=== PATIENT | female | born 1960 | race Caucasian/White ===

== ENCOUNTER 2022-02-15 08:11 | Outpatient (CLI) | payer OTHER, SELFPAY ==
[2022-02-15 11:03] LABS: Albumin* 4.4 g/dL (3.3-5.0); Chloride* 104 mmol/L (96-114)
[2022-02-15 11:04] LABS: Potassium* 4.5 mmol/L (3.6-5.1); Sodium* 138 mmol/L (135-149)
[2022-02-15 11:06] LABS: Carbon Dioxide* 28 mmol/L (20-32); Cholesterol* 159 mg/dL (90-199); Creatinine* 0.8 mg/dL (0.5-1.5); Estimated Glomerular Filt Rate 84 ml/min; Total Protein* 7.3 g/dL (6.0-8.3)
[2022-02-15 11:07] LABS: Alanine Aminotransferase* 14 U/L (4-35); Alkaline Phosphatase* 71 U/L (40-150); Aspartate Amino Transferase* 20 U/L (12-35); Bilirubin Total* 0.4 mg/dL (0.1-1.5); Blood Urea Nitrogen* 19 mg/dL (7-30); Calcium* 9.3 mg/dL (8.4-10.6); Glucose* 115 mg/dL (60-115); Triglycerides* 79 mg/dL (40-149)
[2022-02-15 11:08] LABS: HDL Cholesterol* 53 mg/dL (>=50); LDL Cholesterol Calculated 90 mg/dL (<100)
[2022-02-15 11:22] LABS: Vitamin D 25 Hydroxy* 41 ng/mL (30-80)
[2022-02-15 11:23] LABS: Creatinine Urine 109.5 mg/dL
[2022-02-15 11:27] LABS: Microalbumin Creatinine Ratio 0 mg/g (0-30); Microalbumin Urine 1 mg/dL
== END 2022-02-15 08:12 | disposition home or self-care (01) ==
PROVIDERS: PCP Family Medicine; Visit Provider Family Medicine
DX: Z01.419 Encounter for gynecological examination (general) (routine) without abnormal findings (principal); E11.9 Type 2 diabetes mellitus without complications; E78.5 Hyperlipidemia, unspecified; M85.80 Other specified disorders of bone density and structure, unspecified site; R03.0 Elevated blood-pressure reading, without diagnosis of hypertension; E55.9 Vitamin D deficiency, unspecified
CPT/HCPCS: 80053; 80061; 82043; 82306; 82570

== ENCOUNTER 2022-08-20 08:45 | Outpatient (RCR) | payer OTHER, SELFPAY ==
--- NOTE | 2022-07-29 14:25 | PT.OPEX ---
PT [place] Outpatient Eval PT [facility] Outpatient Eval Start: 07/29/22 13:22 Freq: Status: Active Protocol: Document 07/29/22 13:23 HUGO (Rec: 07/29/22 14:11 HUGO [id number]) E-signed By Eunice Mcbride DPT Physical Therapy Outpatient Evaluation Insurance Information Insurance Name [employer] Medical Diagnosis cervicalgia Treating Diagnosis UBN pain, impaired neck ROM, impaired posture, core/trunk/ neck weakness, limited tolerance for extended time reading/working on computer/ driving Subjective Subjective Patient reports chronic UBN pain issues over the years with flare up of pain/sx back in April. She reports ongoing pain since then, off/ on, worse with turning her head, driving, computer work, reading activities. Patient also feels some of her pain/sx are tightness, tension, and stress related. She is not needing pain meds. Has been using a heating pad but reports minimal, short term relief so far. SLeep has been ok. Patient denies any shoulder pain. Denies any injury/trauma. No UE radicular pain/sx. Pain rated 6/10 with neck ROM, especially rotation. She denies pain at rest. Date of Last Physician Visit 06/15/22 Precautions Treatment Precautions/Contraindications DM Assessment Assessment/Impression Patient is a 61 year old female with UBN pain, impaired neck ROM, impaired posture, core/trunk/neck weakness, limited tolerance for extended time reading/working on computer/driving. She reports hx of chronic UBN pain issues from tension, stress, daily/ work activities of reading, being on the computer. She denies pain at rest, increases to 6/10 with cervical rotation and sidebending. Patient with fwd head, rounded shoulders posture. Bilateral shoulder ROM and strength are WFL. Cervical ROM is tight, stiff, limited with sidebending and rotation. Patient is tight, tender with palpation bilateral UBN region including UT, supraspinatus, cervical/thoracic paraspinals, levator musculature. Reviewed posture with daily/ work activities. Patient reports having PT for her UBN pain about 5 years ago with good results using US, MT, and exercise. Patient would benefit from skilled PT for pain/sx management, improved cervical ROM, posture/body mechanics training, core/trunk /neck strengthening, and establishment of HEP. Plan of Care Rehabilitation Potential Good Physical Therapy Goals 1. Decrease UBN pain to less than/equal to 3/10 with daily/ work activities and with the progression of PT activities over the next 4-6 weeks. 2. Patient will be educated on posture/body mechanics over the next 6-8 weeks for decreased stress on UBN musculature and decreased UBN pain with daily/work activities. 3. Improve cervical ROM to WFL and pain free over the next 8-10 weeks for return to ease with daily/work activities and with driving without flare up of pain. 4. Improve core, trunk, UBN strength and posture over the next 8-10 weeks for return to PLF with daily/work activities without flare up of pain and decreased stress on UBN for ongoing management of chronic neck pain. 5. Patient will be I with HEP within 10 weeks for progression toward above goals, ongoing self management of pain/sx, ongoing self improvements in cervical ROM/posture/ strength, and for return to PLF with daily/work activities, including driving, reading, and computer work without flare ups of pain. Coordination/Communication With Referral Source Treatment Plan/Direct Interventions Electrical Stimulation,Manual Therapy,Therapeutic Exercises, Ultrasound Frequency/Duration 1x/week Patient Will Be Discharged From Therapy Completion of LTG(s),Skills Plateau,Independent w/HEP, Independently Progressing Evaluation Billing Untimed Code Treatment Minutes 23 Complexity Moderate Certification Information Physician Comment/Change : Physician NPI Number #
== END 2022-11-12 11:22 | disposition home or self-care (01) ==
PROVIDERS: PCP Family Medicine; Visit Provider Family Medicine
DX: M54.2 Cervicalgia (principal); Z51.89 Encounter for other specified aftercare
CPT/HCPCS: 97035; 97110; 97140; 97162

== ENCOUNTER 2023-01-26 09:13 | Outpatient (CLI) | payer OTHER, SELFPAY | END 2023-01-26 09:14 | disposition home or self-care (01) | LOC: NFLDREF 01-27 09:30 | PROVIDERS: PCP Family Medicine; Referring Provider Family Medicine; Visit Provider Internal Medicine | DX: R30.0 Dysuria (principal); N39.0 Urinary tract infection, site not specified | CPT/HCPCS: 87086; 87186 ==

== ENCOUNTER 2023-01-26 09:51 | Outpatient (CLI) | payer OTHER, SELFPAY ==
--- NOTE | 2023-01-26 10:15 | CRLHL7_ITS ---
For Patients: As a result of the Century Cures Act, medical imaging exams and procedure reports are released immediately into your electronic medical record. You may view this report before your referring provider. If you have questions, please contact your health care provider. BILATERAL SCREENING MAMMOGRAM WITH COMPUTER-AIDED DETECTION AND TOMOSYNTHESIS TECHNIQUE: CC and MLO views were obtained. These mammographic images have been obtained using full-field digital technique. These mammographic images were interpreted with the benefit of computer-aided detection. Breast Tomosynthesis was used in this interpretation. COMPARISON FILM: 11/10/21, 10/31/20, 09/21/19. FINDINGS: There are scattered areas of fibroglandular density IMPRESSION: There is no radiographic evidence for malignancy. ASSESSMENT: BI-RADS Category 1: Negative RECOMMENDATION: Routine screening mammogram in 1 year. A lay language report of this examination will be provided to the patient. Enrrique Peña M.D. Diagnostic Radiologist [email or web address] KENNETH/Dictated by: Enrrique Peña MD @ 01/26/2023 10:55:00 AM (Electronically Signed)
== END 2023-01-26 09:52 | disposition home or self-care (01) ==
PROVIDERS: PCP Family Medicine; Visit Provider Family Medicine
DX: Z12.31 Encounter for screening mammogram for malignant neoplasm of breast (principal)
CPT/HCPCS: 77063; 77067

== ENCOUNTER 2023-02-15 08:06 | Outpatient (CLI) | payer OTHER, SELFPAY | END 2023-02-15 08:07 | disposition home or self-care (01) | LOC: NFLDREF 12:34 | PROVIDERS: PCP Family Medicine; Referring Provider Family Medicine; Visit Provider Family Medicine | DX: Z00.00 Encounter for general adult medical examination without abnormal findings (principal); E11.9 Type 2 diabetes mellitus without complications; R03.0 Elevated blood-pressure reading, without diagnosis of hypertension; E78.5 Hyperlipidemia, unspecified | CPT/HCPCS: 80053; 80061; 82043; 82570 ==

== ENCOUNTER 2023-08-18 07:55 | Outpatient (CLI) | payer OTHER, SELFPAY ==
--- OUTSIDE RECORDS SUMMARY | 2023-08-19 11:54 | XMS_ITS | Clinical Summary ---
Author Name Unknown Organization [employer] [facility] [employer] [facility] Address [place], [place] [address] Care Team Providers Care Water Reclamation Systems Operator Name Role Phone Leatha Nina MD Primary Care Provider + Allergies Active Allergy Reactions Criticality Noted Date Comments Codeine Confusion 02/16/2011 Penicillins Rash 02/16/2011 Medications Medication Sig Dispensed Refills Start Date End Date Status simvastatin (ZOCOR) 20 mg tablet Take 20 mg by mouth at bedtime. 0 12/02/2021 Active calcium carbonate-vitamin D3, 500 mg-400 units, (OSCAL 500 + D) tablet Daily 0 Ac tive Active Problems Problem Noted Date Diagnosed Date Screen for colon cancer 02/16/2011 Overview: Colonoscopy 01/2011 normal repeat in 10 years Colonoscopy 01/2021 diverticulosis, repeat in 10 years Social History Tobacco Use Types Packs/Day Years Used Date Smoking Tobacco: Never Smokeless Tobacco: Never Tobacco Cessation:Counseling Given: Yes Alcohol Use Standard Drinks/Week Comments Not Asked 0 (1 standard drink = 0.6 oz pur e alcohol) Sex and Gender Information Value Date Recorded Sex Assigned at Not on file Gender Identity Not on file Sexual Orientation Not on file Obstetrics History Last Filed Vital Signs Vital Sign Reading Time Taken Comments Blood Pressure 131/83 12/22/2021 1:31 PM CDT tow er Pulse 84 12/22/2021 1:31 PM CDT Temperature - - Respiratory Rate - - Oxygen Saturation 98% 12/22/2021 1:31 PM CDT Inhaled Oxygen Concentration - - Weight 72.6 kg (160 lb) 12/22/2021 1:31 PM CDT Height - - Body Mass Index - - Plan of Treatment Health Maintenance Due Date Last Done Comments Tdap 1971 Depression screening for age 12+ 1972 HIV for age 15-65 1975 BMI (ht and wt on same day) for age 18+ 1978 Hepatitis C screening for age 18-79 1978 Tetanus booster 1980 Lipids for age 45-75 2005 Mammogram for age 45-75 2005 Zoster (shingles) series for age 50+ (1 of 2) 2010 Pap test for age 21-65 10/26/2021 9, 10/26/2018, 07/08/2016, Additional history exists COVID-19 vaccine series ( season) 2023 11/27/2020, 10/30/2020 Influenza for age 50-64 03/25/2023 Colonoscopy through age 75 02/17/203102/17, 02/17/2021, 02/16/2011, Additional history exists Pneumococcal series for age 6-64 Aged Out No longer eligible based on patient's age to complete this topic Care Teams Water Reclamation Systems Operator Relationship Specialty Start Date End Date Leatha Nina MD [address] [address] PCP - General Family Practice 05/24/16
== END 2023-08-18 07:56 | disposition home or self-care (01) ==
LOC: NFLDREF 08-19 11:49
PROVIDERS: PCP Family Medicine; Referring Provider Family Medicine; Visit Provider Family Medicine
DX: E78.5 Hyperlipidemia, unspecified (principal); E11.9 Type 2 diabetes mellitus without complications; R80.9 Proteinuria, unspecified
CPT/HCPCS: 80053; 80061; 82043; 82570

== ENCOUNTER 2024-03-05 08:50 | Outpatient (CLI) | payer OTHER, SELFPAY ==
--- OUTSIDE RECORDS SUMMARY | 2024-03-09 01:37 | XMS_ITS | Clinical Summary ---
Author Organization [employer] [facility] [employer] Address [place], [place] [address] Care Team Providers Care Trauma Doctor Name Role Phone Leatha Nina MD Primary Care Provider + Allergies Active Allergy Reactions Criticality Noted Date Comments Codeine Confusion 02/16/2011 Penicillins Rash 02/16/2011 Medications Medication Sig Dispensed Refills Start Date End Date Status simvastatin (ZOCOR) 20 mg tablet Take 20 mg by mouth at bedtime. 12/02/2021 Active calcium carbonate-vitamin D3, 500 mg-400 units, (OSCAL 500 + D) tablet Daily Ac tive Active Problems Problem Noted Date Diagnosed Date Screen for colon cancer 02/16/2011 Overview: Colonoscopy 01/2011 normal repeat in 10 years Colonoscopy 01/2021 diverticulosis, repeat in 10 years Encounters Date Type Department Care Team Description 03/07/2024 Lab Requisition [facility] [phone] Leatha Nina MD from Last 3 Months Social History Tobacco Use Types Packs/Day Years [...] 2023 11/27/2020, 10/30/2020 Influenza for age 50-64 03/25/2024 Colonoscopy through age 75 02/17/203102/17, 02/17/2021, 02/16/2011, Additional history exists Pneumococcal series for age 6-64 Aged Out No longer eligible based on patient's age to complete this topic Procedures Procedure Name Priority Date/Time Associated Diagnosis Comments COLONOSCOPY 02/17/2021 7:28 AM CDT FIXTURE RELAMPER THIN PREP PAP SCREEN IMAGED Routine 10/26/2018 8:05 AM CDT from Last 3 Months or Most Recently Relevant to Health Maintenance Results * COLONOSCOPY (02/17/2021 7:28 AM CDT) 02/17/2021 7:28 AM CDT Narrative Transcriptions Corby Funez MD - 02/17/2021 8:32 AM CDT Patient Name: Jenny Zhang Procedure Date: 02/17/2021 Gender: Female Date of : 1960 Admit Type: Outpatient Procedure: Colonoscopy Proceduralist: Corby Funez MD , Tiffanie Torres RN(Nurse) Indications/Pre-Op Diagnosis: Screening for colorectal malignant neoplasm, Last colonoscopy: January 2011 Medications: Fentanyl 100 micrograms IV, Midazolam 2 mgIV, The level of sedation administered wasmoderate Procedure Description: The patient had risks, benefits and alternatives explained to andgave informed consent. The patient had a stable cardiopulmonary status and judged an adequate candidate for conscious sedation. The Colonoscope was passed through the anus and advanced to thececum, identified by appendiceal orifice and ileocecal valve. Thecolonoscopy was performed without difficulty. The patient tolerated the procedure well. The quality of the bowel preparation was good. The ileocecal valve, appendiceal orifice, and rectum were photographed. Complications: No immediate complications. Estimated Blood Loss & Specimen: Estimated blood loss: none. Specimen collected - None Findings: The perianal and digital rectal examinations were normal. A few small-mouthed diverticula were found in the sigmoid colon. The exam was otherwise without abnormality on direct and retroflexion views. Impressions/Post-Op Diagnosis: - Diverticulosis in the sigmoid colon. - The examination was otherwise normal on direct and retroflexionviews. - No specimens collected. Recommendation: - Patient has a contact number available for emergencies. The signsand symptoms of potential delayed complications were discussed with the patient. Return to normal activities tomorrow. Written discharge instructions were provided to the patient. - Resume previous diet. - Continue present medications. - Repeat colonoscopy in 10 years for screening purposes. Moderate Sedation: Moderate (conscious) sedation was administered by the endoscopy nurse and supervised by the endoscopist. The following parameters were monitored: oxygen saturation, heart rate, respiratory rate, blood pressure, adequacy of pulmonary ventilation and reponse to care. Please refer to the patient's medical record flowsheets and nursing notes for moderate sedation details. Total physician intraservice time was 15 minutes. Corby Funez MD 02/17/2021 8:32:30 AM This report has been signed electronically. Note Initiated On: 02/17/2021 7:28 AM Procedure Code(s): --- Professional --- 27793, Colonoscopy, flexible; diagnostic, including collection of specimen(s) bybrushing or washing, when performed (separateprocedure) Diagnosis Code(s): --- Professional --- Z12.11, Encounter for screening formalignant neoplasm of colon K57.30, Diverticulosis of large intestine without perforation or abscess withoutbleeding CPT copyright 2020 [employer]. All rights reserved. The codes documented in this report are preliminary and upon filing machine operator reviewmay be revised to meet current compliance requirements. Scope In: 8:12:13 AM Scope Withdrawal Time 0 hours 6 minutes 2 seconds Scope Out: 8:25:15 AM Corby Funez MD PROCEDURE ORD * FIXTURE RELAMPER THIN PREP PAP SCREEN IMAGED (10/26/2018 8:05 AM CDT) Case Report Gynecologic Cytology Report ? Case: [id number] ? Authorizing Provider: ??Leatha Nina MD ??Collected: ? 10/26/2018 0805 ? Ordering Location: ? [facility] ?Received: ?10/29/2018 1024 ? First Screen: ?Savita Bangura ? Specimen: ?FIXTURE RELAMPER ThinPrep Vial Screening, Cervical/Vaginal ? 11/06/2018 12:08 PM CDT [facility] INTERPRETATION/ RESULT NEGATIVE FOR INTRAEPITHELIAL LESION OR MALIGNANCY (NIL) (none) 11/06/2018 12:08 PM T [facility] IMEN ADEQUACY Satisfactory for evaluation Endocervical component present 11/06/2018 12:08 PM CDT [facility] HPV REQUEST HPV and PAP 11/06/2018 12:08 PM T [facility] Automated Review Successful 11/06/2018 12:08 PM T [facility] Comment:Specimen processed s uccessfully by automated campus manager device, ThinPrep Imaging System, [employer] ANCILLARY TESTING FIXTURE RELAMPER HPV Ordered, Please see separate report 11/06/2018 12:08 PM T [facility] Note The pap test is a screening technique, not a diagnostic procedure. ??It is used primarily to screen for squamous cancers and precursor lesions. ??Published studies have shown that it is subject to both false negative and false positive results. ??The pap test should not be used as the sole means to diagnose or exclude pre-malignant and malignant lesions. Cytology is screened and interpreted at [facility] - [address], [place] [address] and [facility] - [address] [place] [address]; [place] [address] and [facility] - [address]; [place] [address] and [facility] [address]; [place] [address] 11/06/2018 12:08 PM T [facility] Other (Cervical/Vagina l) 10/26/2018 8:05 AM CDT 10/29/2018 10:24 AM CDT Leatha Nina MD PATHOLOGY/[facility] [address] [place] [address], from Last 3 Months or Most Recently Relevant to Health Maintenance Care Teams Trauma Doctor Relationship Specialty Start Date End Date Leatha Nina MD [address] [place] [address] PCP - General Family Practice 05/24/16
== END 2024-03-05 08:51 | disposition home or self-care (01) ==
LOC: NFLDREF 03-09 01:35
PROVIDERS: PCP Family Medicine; Referring Provider Family Medicine; Visit Provider Family Medicine
DX: E55.9 Vitamin D deficiency, unspecified (principal); R53.83 Other fatigue; M85.80 Other specified disorders of bone density and structure, unspecified site; E11.9 Type 2 diabetes mellitus without complications; E78.5 Hyperlipidemia, unspecified; R80.9 Proteinuria, unspecified; Z13.29 Encounter for screening for other suspected endocrine disorder
CPT/HCPCS: 80053; 80061; 82043; 82306; 82570; 84443

== ENCOUNTER 2024-03-14 07:36 | Outpatient (CLI) | payer OTHER, SELFPAY ==
--- OUTSIDE RECORDS SUMMARY | 2024-03-14 07:38 | XMS_ITS | Clinical Summary ---
Author Organization [employer] [facility] [employer] Address [place], [place] [address] Care Team Providers Care Ballet Professor Name Role Phone Leatha Nina MD Primary [...] Department Care Team Description 03/07/2024 Lab Requisition [facility] [phone] Leatha Nina MD from Last 3 Months [...] for age 50+ (1 of 2) 2010 COVID-19 vaccine series () 03/25/2023 11/27/2020, 10/30/2020 Influenza for age 50-64 03/25/2024 Pap test for age 21-65 03/06/2027 , 10/26/2018, 10/26/2018, Additional history exists Colonoscopy through age 75 02/17/203102/17, 02/17/2021, 02/16/2011, Additional history exists Pneumococcal series for age 6-64 Aged Out No longer eligible based on patient's age to complete this topic Procedures Procedure Name Priority Date/Time Associated Diagnosis Comments LAB TRACKING EVENT Routine 03/06/2024 1: 27 PM CDT HPV THIN PREP Routine 03/06/2024 1:27 PM CDT COLONOSCOPY 02/17/2021 7:28 AM CDT from Last 3 Months or Most Recently Relevant to Health Maintenance Results * LAB TRACKING EVENT (03/06/2024 1:27 PM CDT) Other (Other) Client Collect / Unknown 03/06/2024 1:27 PM CDT 03/07/2024 4:20 PM CDT Leatha Nina MD LAB BILL ONLY [facility] [address] [place] [address], * HPV HIGH RISK (03/06/2024 1:27 PM CDT) TYPE 16 Negative Negative 03/12/2024 4:41 PM CDT [facility] TYPE 18 Negative Negative 03/12/2024 4:41 PM CDT [facility] OTHER HIGH RISK TYPES Negative Negative 03/12/2024 4:41 PM CDT [facility] Other (Cervical/Vagina l) 03/06/2024 1:27 PM CDT 03/08/2024 11:58 AM CDT Narrative [facility] - 03/12/2024 4:41 PM CDT HPV types 16, 18, 31, 33, 35, 39, 45, 51, 52, 56, 58, 59, 66 and 68 DNA were undetectable or below the pre-set threshold. Methodology: [employer] 4800 HPV Test Leatha Nina MD MICROBIOLOGY [facility] [address] [place] [address], [place] * COLONOSCOPY (02/17/2021 7:28 AM CDT) 02/17/2021 7:28 AM CDT Narrative Transcriptions Corby Funez MD - 02/17/2021 8:32 AM CDT Patient Name: Jenny Cuellary Procedure Date: 02/17/2021 Gender: Female Date of [...] 7:28 AM Procedure Code(s): --- Professional --- 31636, Colonoscopy, flexible; diagnostic, including collection of specimen(s) bybrushing or washing, when performed (separateprocedure) Diagnosis Code(s): --- Professional --- Z12.11, Encounter for screening formalignant neoplasm of colon K57.30, Diverticulosis of large intestine without perforation or abscess withoutbleeding CPT copyright 2020 [employer]. All rights reserved. The codes documented in this report are preliminary and upon manager web application reviewmay be revised to meet current compliance requirements. Scope In: 8:12:13 AM Scope Withdrawal Time 0 hours 6 minutes 2 seconds Scope Out: 8:25:15 AM Corby Funez MD PROCEDURE ORD from Last 3 Months or Most Recently Relevant to Health Maintenance Care Teams Ballet Professor Relationship Specialty Start Date End Date Leatha Nina MD [address] [facility] [place] [address] PCP - General Family Practice 05/24/16
--- NOTE | 2024-03-14 07:45 | CRLHL7_ITS ---
For Patients: As a result of the Century Cures Act, medical imaging exams and procedure reports are released immediately into your electronic medical record. You may view this report before your referring provider. If you have questions, please contact your health care provider. BILATERAL SCREENING MAMMOGRAM WITH COMPUTER-AIDED DETECTION AND TOMOSYNTHESIS TECHNIQUE: CC and MLO views were obtained. These mammographic images have been obtained using full-field digital technique. These mammographic images were interpreted with the benefit of computer-aided detection. Breast tomosynthesis was used in this interpretation. COMPARISON FILM: 01/26/23, 11/10/21, 10/31/20. FINDINGS: There are scattered areas of fibroglandular density. IMPRESSION: There is no radiographic evidence for malignancy. ASSESSMENT: BI-RADS Category 1: Negative RECOMMENDATION: Routine screening mammogram in 1 year. A lay language report of this examination will be provided to the patient. ENRRIQUE AGUILAR M.D. Diagnostic Radiologist [email or web address] Transcribed: 3:[address]/Dictated by: Enrrique Aguilar MD @ 03/14/2024 11:36:00 AM (Electronically Signed)
== END 2024-03-14 07:37 | disposition home or self-care (01) ==
PROVIDERS: PCP Family Medicine; Visit Provider Family Medicine
DX: Z12.31 Encounter for screening mammogram for malignant neoplasm of breast (principal)
CPT/HCPCS: 77063; 77067

== ENCOUNTER 2024-05-10 15:04 | Outpatient (CLI) | payer OTHER, SELFPAY ==
--- NOTE | 2024-05-10 15:00 | CRLHL7_ITS ---
For Patients: As a result of the Century Cures Act, medical imaging exams and procedure reports are released immediately into your electronic medical record. You may view this report before your referring provider. If you have questions, please contact your health care provider. DXA BONE MINERAL DENSITY STUDY Reason for exam: Follow-up osteopenia. Current height (in): 65. Weight (lb): 160. Menopause age: 46. Ethnicity: White. 1. Have you had a previous hip or vertebral fracture? No. 2. Have you had any fractures during your adult life which did not result from significant trauma (e.g., auto accident)? No. 3. Did either of your parents have a hip fracture? Yes. 4. Do you smoke? No. 5. Have you ever taken Glucocorticoids? No. 6. Do you have rheumatoid arthritis? No. 7. Do you have secondary osteoporosis? No. 8. Do you drink 3 or more alcoholic drinks per day? No. 9. Are you being treated for osteoporosis? No. 10. Have you ever taken any of the following medications: Actonel, Evista, Fosamax, Miacalcin, Reclast, Boniva, Forteo, HRT (i.e. estrogen/hormone therapy), Protelos, Prolia, Vitamin D, Calcium, other ??? please specify. ANSWER: Yes, vitamin D and calcium. 11. Do you have any of the following medical conditions: Anorexia or bulimia, asthma or emphysema, end stage renal disease, hyperparathyroidism, any seizure disorders, cancer, inflammatory bowel diseases, hysterectomy, other ??? please specify. ANSWER: No. 12. What was your maximum height (inches)? 64. 13. Do you perform weight bearing exercise regularly? No. 14. Do you regularly consume dairy products? Yes. 15. Do you drink caffeinated beverages? Yes. 16. At what age did your period start? 11. 17. Are you premenopausal? No. 18. How many full term pregnancies have you had? 1. 19. Have you ever missed your period for more than 6 months in a row (not including or menopause)? No. TECHNIQUE: Bone mineral density study was performed using the [employer]. FINDINGS: The results of the study expressed as bone mineral density (BMD) are as follows: Lumbar spine L1 to L3: BMD: 0.979 g/cm2. T-score: -0.4. Z-score: 1.3. Neck Left: BMD: 0.625 g/cm2. T-score: -2.0. Z-score: -0.6. Right: BMD: 0.637 g/cm2. T-score: -1.9. Z-score: -0.5. Total Left: BMD: 0.791 g/cm2. T-score: -1.2. Z-score: -0.1. Right: BMD: 0.823 g/cm2. T-score: -1.0. Z-score: 0.2. IMPRESSION: Osteopenia. *Comparison exams done prior to 12/2019 were performed on different unit, Andigilog. COMPARISON: Compared with scan of 02/04/2021, the bone mineral density has increased by 3.2 percent at the spine and increased by 1.5 percent at the hip. Compared with scan of 11/03/2017, the bone mineral density has decreased by 11.7 percent at the spine and increased by 6.6 percent at the hip. FRAX 10-year Fracture Risk Major Osteoporotic Fracture: 19 percent Hip Fracture: 1.4 percent Reported Risk Factors: [place] () Neck BMD=0.625, BMI=26.6 , parental fracture TAMRA WHITE M.D. [email or web address] bM/Dictated by: Tamra White MD @ 05/14/2024 8:22:00 AM (Electronically Signed)
--- OUTSIDE RECORDS SUMMARY | 2024-05-10 15:08 | XMS_ITS | Clinical Summary ---
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 Machine Name Role Phone Leatha Nina MD Primary [...] Diagnosed Date Screen for colon cancer 02/16/2011 Overview (02/17/2021): Colonoscopy 01/2011 normal repeat in 10 years Colonoscopy 01/2021 diverticulosis, repeat in 10 years Encounters Date Type Department Care Team Description 03/07/2024 Lab Requisition [facility] [phone] Leatha Nina MD from Last 3 Months [...] (1 of 2) 2010 COVID-19 vaccine series (2023- season) 2024 11/27/2020, 10/30/2020 Influenza for age 50-64 03/25/2024 Pap test for age 21-65 03/06/2027 , 03/06/2024, 10/26/2018, Additional history exists Colonoscopy through age 75 02/17/203102/17, 02/17/2021, 02/16/2011, Additional history exists Pneumococcal series for age 6-64 Aged Out No longer eligible based on patient's age to complete this topic Procedures Procedure Name Priority Date/Time Associated Diagnosis Comments LAB TRACKING EVENT Routine 03/06/2024 1: 27 PM CDT LOAN SERVICING SPECIALIST THIN PREP PAP SCREEN IMAGED Routine 03/06/2024 1:27 PM CDT HPV HIGH RISK Routine 03/06/2024 1:27 PM CDT COLONOSCOPY 02/17/2021 7:28 AM CDT from Last 3 Months or Most Recently Relevant to Health Maintenance Results * LAB TRACKING EVENT (03/06/2024 1:27 PM CDT) Other (Other) Client Collect / Unknown 03/06/2024 1:27 PM CDT 03/07/2024 4:20 PM CDT Leatha Nina MD LAB BILL ONLY [facility] [address] [place] [address], * LOAN SERVICING SPECIALIST THIN PREP PAP SCREEN IMAGED (03/06/2024 1:27 PM CDT) Case Report Gynecologic Cytology Report ? Case: [id number] ? Authorizing Provider: ??Leatha Nina MD ??Collected: ? 03/06/2024 1327 ? Ordering Location: ? [facility] ?Received: ?03/08/2024 1158 ? First Screen: ?Savita Bangura ? Specimen: ?LOAN SERVICING SPECIALIST ThinPrep Vial Screening, Cervical/Vaginal ? 03/14/2024 11:24 AM CDT [facility] INTERPRETATION/ RESULT NEGATIVE FOR INTRAEPITHELIAL LESION OR MALIGNANCY (NIL) (none) 03/14/2024 11:24 AM CDT [facility] IMEN ADEQUACY Satisfactory for evaluation No endocervical component seen 03/14/2024 11:24 AM CDT [facility] HPV REQUEST HPV and PAP 03/14/2024 11:24 AM CDT [facility] Date of LMP 03/14/2024 11:24 AM CDT [facility] Comment:Unknown Last Pap Date 10/26/2018 03/14/2024 11:24 AM CDT [facility] Last Pap Result NIL 11:24 AM CDT [facility] Abnormal Pap or Almo Bx in last 5 years No 03/14/2024 11:24 AM CDT [facility] Menstrual Status Postmenopausal 03/14/2024 11:[address] [facility] Almo Bx Done Today No 03/14/2024 11:[address] [facility] Additional Information 03/14/2024 11:24 AM CDT [facility] Comment: Interpreted at [facility] Laboratory - [address] [place] [id number] Automated Review Successful 03/14/2024 11:[address] [facility] Comment:Specimen processed s uccessfully by automated pharmaceutical operator device, ThinPrep Imaging System, [employer] ANCILLARY TESTING LOAN SERVICING SPECIALIST HPV Ordered, Please see separate report 03/14/2024 11:[address] [facility] Note The pap test is a screening technique, not a diagnostic procedure. It is used primarily to screen for squamous cancers and precursor lesions. Published studies have shown that it is subject to both false negative and false positive results. The pap test should not be used as the sole means to diagnose or exclude pre-malignant and malignant lesions. 03/14/2024 11:[address] [facility] Other (Cervical/Vagina l) 03/06/2024 1:27 PM CDT 03/08/2024 11:58 AM CDT Leatha Nina MD PATHOLOGY[facility] [address] [place] [address], * HPV HIGH RISK (03/06/2024 1:27 PM CDT) TYPE 16 Negative Negative 03/12/2024 4:41 PM CDT [facility] TYPE 18 Negative Negative 03/12/2024 4:41 PM CDT [facility] OTHER HIGH RISK TYPES Negative Negative 03/12/2024 4:41 PM CDT [facility] Other (Cervical/Vagina l) 03/06/2024 1:27 PM CDT 03/08/2024 11:58 AM CDT Narrative [facility] - 03/12/2024 4:41 PM CDT HPV types 16, 18, 31, 33, 35, 39, 45, 51, 52, 56, 58, 59, 66 and 68 DNA were undetectable or below the pre-set threshold. Methodology: [employer] 4800 HPV Test Leatha Nina MD MICROBIOLOGY [facility] [address] [place] [address], [place] * COLONOSCOPY (02/17/2021 7:28 AM CDT) [...] 7:28 AM Procedure Code(s): --- Professional --- 14029, Colonoscopy, flexible; diagnostic, including collection of specimen(s) bybrushing or washing, when performed (separateprocedure) Diagnosis Code(s): --- Professional --- Z12.11, Encounter for screening formalignant neoplasm of colon K57.30, Diverticulosis of large intestine without perforation or abscess withoutbleeding CPT copyright 2020 [employer]. All rights reserved. The codes documented in this report are preliminary and upon plant maintenance technician reviewmay be revised to meet current compliance requirements. Scope In: 8:12:13 AM Scope Withdrawal Time 0 hours 6 minutes 2 seconds Scope Out: 8:25:15 AM Corby Funez MD PROCEDURE ORD from Last 3 Months or Most Recently Relevant to Health Maintenance Care Teams Sweeper Brush Maker Machine Relationship Specialty Start Date End Date Leatha Nina MD [address] [facility] [place] [place] [id number] PCP - General Family Practice 05/24/16
== END 2024-05-10 15:05 | disposition home or self-care (01) ==
LOC: RAD 15:05
PROVIDERS: PCP Family Medicine; Visit Provider Family Medicine
DX: M85.89 Other specified disorders of bone density and structure, multiple sites (principal)
CPT/HCPCS: 77080

== ENCOUNTER 2024-08-28 08:29 | Outpatient (CLI) | payer BC, SELFPAY | END 2024-08-28 08:30 | disposition home or self-care (01) | LOC: NFLDREF 08-29 02:15 | PROVIDERS: PCP Family Medicine; Referring Provider Family Medicine; Visit Provider Family Medicine | DX: E78.5 Hyperlipidemia, unspecified (principal); E11.9 Type 2 diabetes mellitus without complications; E55.9 Vitamin D deficiency, unspecified; M81.0 Age-related osteoporosis without current pathological fracture | CPT/HCPCS: 80061; 82306 ==

== ENCOUNTER 2025-03-11 09:08 | Outpatient (CLI) | payer BC, SELFPAY | END 2025-03-11 09:09 | disposition home or self-care (01) | LOC: NFLDREF 03-13 17:10 | PROVIDERS: PCP Family Medicine; Referring Provider Family Medicine; Visit Provider Family Medicine | DX: Z00.00 Encounter for general adult medical examination without abnormal findings (principal); E78.5 Hyperlipidemia, unspecified; M85.89 Other specified disorders of bone density and structure, multiple sites; E55.9 Vitamin D deficiency, unspecified; E11.9 Type 2 diabetes mellitus without complications; R53.83 Other fatigue | CPT/HCPCS: 80053; 80061; 82043; 82306; 82570 ==

== ENCOUNTER 2025-03-18 13:11 | Outpatient (CLI) | payer BC, SELFPAY ==
--- NOTE | 2025-03-18 13:20 | CRLHL7_ITS ---
For Patients: As a result of the Century Cures Act, medical imaging exams and procedure reports are released immediately into your electronic medical record. You may view this report before your referring provider. If you have questions, please contact your health care provider. INDICATION: BILATERAL SCREENING MAMMOGRAM, ASYMPTOMATIC 64 Y/O FEMALE COMPARISON: 03/14/2024, 01/26/2023, 11/10/2021 TECHNIQUE: Digital mammogram in CC and MLO projections including computer-aided detection (CAD) and tomosynthesis. BREAST COMPOSITION: There are scattered areas of fibroglandular density. FINDINGS: No suspicious findings. ASSESSMENT: BI-RADS 2 Benign RECOMMENDATION: Annual screening mammogram. A lay language report of this examination will be provided to the patient. Dictated by: Enrrique Peña MD @ 03/19/2025 09:19:54 (Electronically Signed)
== END 2025-03-18 13:12 | disposition home or self-care (01) ==
LOC: MAMMO 13:12
PROVIDERS: PCP Family Medicine; Visit Provider Family Medicine
DX: Z12.31 Encounter for screening mammogram for malignant neoplasm of breast (principal)
CPT/HCPCS: 77063; 77067